=== PATIENT | female | born 1950 | race Caucasian/White ===

== ENCOUNTER 2016-10-12 12:08 | Emergency (ER) | payer MEDICARE | END 2016-10-12 13:15 | disposition home or self-care (01) | DX: I49.3 Ventricular premature depolarization (principal); Z85.3 Personal history of malignant neoplasm of breast; Z79.2 Long term (current) use of antibiotics; Z79.82 Long term (current) use of aspirin; Z79.899 Other long term (current) drug therapy; K21.9 Gastro-esophageal reflux disease without esophagitis; R03.0 Elevated blood-pressure reading, without diagnosis of hypertension ==

== ENCOUNTER 2017-01-05 07:17 | Outpatient (CLI) | payer MEDICARE | END 2017-01-05 07:18 | disposition home or self-care (01) | DX: E78.5 Hyperlipidemia, unspecified (principal) ==

== ENCOUNTER 2017-06-11 08:22 | Day surgery (SDC) | payer MEDICARE ==
[2017-06-11] MEDS ORDERED: MIDAZOLAM 2 MG/2 ML VIAL IVP ONE (08:23)
[2017-06-11] MEDS ORDERED: ONDANSETRON 4 MG/2 ML VIAL IVP ONE (08:23)
[2017-06-11] MEDS ORDERED: fentaNYL 100 MCG/2 ML VIAL IVP ONE (08:23)
[2017-06-11] MEDS ORDERED: LACTATED RINGERS 1,000 ML IV ONE ×2 (09:00→12:10)
--- NOTE | 2017-06-11 11:22 | HISTORY & PHYSICAL EXAMINATION ---
HPI - History of Present Illness HPI Comment/Other: This is to serve as an updated from an H and P performed 05/08/2017 Patient is here for colonoscopy for history of polyps Current Meds: ACIDOPHILUS PROBIOTIC CAPS (LACTOBACILLUS CAPS) Take one tablet by mouth daily B-12 5000 MCG ORAL CAPS (CYANOCOBALAMIN) Take one capsule by mouth daily PROTONIX 40 MG ORAL TBEC (PANTOPRAZOLE SODIUM) Take one tablet by mouth daily Past Medical History: Reviewed history from 01/08/2016 and no changes required: Breast CA Stage 1- 2009. Estrogen positive. HTN Hyperlipidemia High Cholesterol Gall stones Past Surgical History: Reviewed history from 01/08/2016 and no changes required: Right partial mastectomy on right breast CA. bILATERAL Breast reduction after above. 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 . Moved here from [place] recently. Retired to [place] Moved to [place] and bought a fixer upper and enjoys that hobby remodeling. Risk Factors: Smoked Tobacco Use: Never smoker Smokeless Tobacco Use: Never Passive smoke exposure: no Drug use: no HIV high-risk behavior: no Caffeine use: 1 drinks per day Alcohol use: yes Type: wine Exercise: yes Times per week: 7 Type of Exercise: walking, biking, kyaking Seatbelt use: 100 % Sun Exposure: frequently Family History Risk Factors: Family History of [place] in females < 65 years old: no Family History of [place] in males < 55 years old: yes Previous Tobacco Use: Signed On - 01/08/2017 Smoked Tobacco Use: Never smoker Smokeless Tobacco Use: Never Passive smoke exposure: no Drug use: no HIV high-risk behavior: no Caffeine use: 1 drinks per day Problems were reviewed with the patient during this visit. Medications were reviewed with the patient during this visit. Allergies were reviewed with the patient during this visit. Allergies: LEVAQUIN (Critical) * Q-LEA INHALER (Severe) Physical Exam General: well developed, well nourished, in no acute distress Lungs: clear bilaterally to A & P Heart: regular rate and rhythm, S1, S2 without murmurs, rubs, gallops, or clicks Abdomen: bowel sounds positive; abdomen soft and non-tender without masses, organomegaly, or hernias noted Pulses: pulses normal in all 4 extremities Extremities: no clubbing, cyanosis, edema, or deformity noted with normal full range of motion of all joints Cervical Nodes: no significant adenopathy Psych: alert and cooperative; normal mood and affect; normal attention span and concentration Problem # 1: polyps Will proceed with colonoscopy PMH/PSH - Past Medical History GI: positive: GERD, Hemorrhoids, Diverticulitis PHYSICIAN AIDE: positive: Breast cancer MRSA Hx?: No - Past Surgical History General: positive: Appendectomy /PHYSICIAN AIDE: positive: Breast reduction, Other HEENT: positive: Tonsil/Adenoidectomy Social & Family Hx - Social History Does the pt smoke?: No Smoking Status: Never smoker Does the pt drink ETOH?: Yes ETOH Use: Wine Does the pt have substance abuse?: No Meds/Allgy - Home Medications Home Medications: Ambulatory Orders Medication Instructions Recorded Confirmed Aspirin [Aspir-Low] 81 mg PO DAILY 07/19/16 06/10/17 Bacillus Coagulans [Probiotic] 1 cap PO DAILY 07/19/16 06/10/17 Benazepril/Hydrochlorothiazide 1 tab PO DAILY 07/20/16 06/10/17 [Benazepril-Hctz 20-25 mg Tab] Cyanocobalamin (Vitamin B-12) 5,000 mcg PO DAILY 07/20/16 06/10/17 [B-12 Dual Spectrum] Mupirocin 1 gm DONALD BID #2 tub 10/12/16 06/10/17 raNITIdine [Zantac] 1 tab ORAL DAILY 06/10/17 06/10/17 - Allergies Allergies/Adverse Reactions: Allergies Allergy/AdvReac Type Severity Reaction Status Date / Time levofloxacin [From Levaquin] Allergy Unknown Verified 10/12/16 12:15 Exam - Vital Signs Vital Signs: Vital Signs x48h Temp Pulse Resp BP Pulse Ox 06/11/17 08:35 36.5 C 69 16 156/75 H 97
[2017-06-11 12:32] VITALS: BP 104/42
== END 2017-06-11 08:23 | disposition home or self-care (01) ==
LOC: SDS 08:22
PROVIDERS: ATTEND Surgery
PROC: 0DJD8ZZ Inspection of Lower Intestinal Tract, Via Natural or Artificial Opening Endoscopic (ICD-10-PCS; principal; 2017-06-11 09:45)
DX: Z12.11 Encounter for screening for malignant neoplasm of colon (principal); Z86.010 Personal history of colon polyps; K64.4 Residual hemorrhoidal skin tags; K64.8 Other hemorrhoids; K57.90 Diverticulosis of intestine, part unspecified, without perforation or abscess without bleeding; I10 Essential (primary) hypertension; E78.5 Hyperlipidemia, unspecified; Z85.3 Personal history of malignant neoplasm of breast
CPT/HCPCS: 45378; J7120

== ENCOUNTER 2017-06-30 08:43 | Outpatient (CLI) | payer MEDICARE ==
--- NOTE | 2017-06-30 17:13 | Ultrasound Report ---
SCREENING AORTA ULTRASOUND: 06/30/2017 COMPARISON: None. INDICATION: Family history of AAA. TECHNIQUE: Sonographic evaluation of the abdominal aorta and proximal iliac arteries was performed. FINDINGS: Proximal aorta 2.6 cm. Mid abdominal aorta 2.0 x 1.8 cm. Distal abdominal aorta 1.3 x 1.3 cm. Right iliac artery 1.9 cm. Left iliac artery 1.1 cm. No appreciable plaque or atherosclerosis. IMPRESSION: NEGATIVE SCREENING ULTRASOUND OF THE ABDOMINAL AORTA. JOB #: [id number] EXT JOB #:[id number]
== END 2017-06-30 08:44 | disposition home or self-care (01) ==
LOC: DI 08:43
PROVIDERS: ATTEND Physician Assistant Medical
DX: Z13.6 Encounter for screening for cardiovascular disorders (principal); Z82.49 Family history of ischemic heart disease and other diseases of the circulatory system
CPT/HCPCS: 76706

== ENCOUNTER 2017-07-22 11:12 | Outpatient (CLI) | payer MEDICARE ==
--- NOTE | 2017-07-22 14:34 | Ultrasound Report ---
RIGHT BREAST ULTRASOUND: 07/22/2017 CLINICAL INDICATION: Palpable abnormality on clinical exam 8 o'clock periareolar right breast. TECHNIQUE: Real-time scanning was performed with traffic workforce representative static images obtained. FINDINGS: Ultrasound of the 8 o'clock periareolar right breast was performed. Unremarkable parenchymal lobules are seen. No discrete solid or cystic mass is appreciated. No sonographically suspicious findings are seen. IMPRESSION: NEGATIVE EXAMINATION. RECOMMENDATION: ROUTINE ANNUAL SCREENING UNLESS OTHERWISE CLINICALLY INDICATED. BIRADS CATEGORY 1-NEGATIVE. MTDD
--- NOTE | 2017-07-22 14:41 | Mammography Report ---
DIGITAL DIAGNOSTIC BILATERAL MAMMOGRAM: 07/22/2017 CLINICAL INDICATION: Palpable abnormality on clinical exam right periareolar breast, history of right breast cancer, history of bilateral reduction mammoplasty. COMPARISON: 01/29/2016. TECHNIQUE: Bilateral CC and MLO views, right true lateral view. FINDINGS: The breasts again demonstrate scattered fibroglandular parenchyma bilaterally. Postoperati ve changes are stable. Coarse and punctate, typically benign calcifications are present. No suspiciou s masses, clustered microcalcifications, or regions of architectural distortion are identified. Speci fically, no mammographic abnormality is appreciated in the right periareolar breast, in the region in dicated on the requisition. Please also refer to right breast ultrasound of the same day. IMPRESSION: BENIGN FINDINGS. RECOMMENDATION: ROUTINE ANNUAL SCREENING UNLESS OTHERWISE CLINICALLY INDICATED. BIRADS CATEGORY 2-BENIGN FINDINGS. STANDARD QUALIFYING STATEMENTS 1. This examination was reviewed with the aid of Computer-Aided Detection (CAD). 2. A negative or benign imaging report should not delay biopsy if clinically suspicious findings are present. Consider surgical consultation if warranted. More than 5% of cancers are not identified by i maging. 3. Dense breasts may obscure an underlying neoplasm. JOB #: [id number] EXT JOB #:[id number]
== END 2017-07-22 11:13 | disposition home or self-care (01) ==
LOC: DI 11:12
PROVIDERS: ATTEND Physician Assistant Medical
DX: N63.41 Unspecified lump in right breast, subareolar (principal); Z85.3 Personal history of malignant neoplasm of breast
CPT/HCPCS: 76642; G0204; 77066

== ENCOUNTER 2017-12-18 07:11 | Outpatient (CLI) | payer MEDICARE ==
[2017-12-18 10:54] LABS: BASOPHILS # (AUTO) 0.1 10^3/uL (0.0-0.1); BASOPHILS % (AUTO) 1.7 %; EOSINOPHILS # (AUTO) 0.3 10^3/uL (0.0-0.7); EOSINOPHILS % (AUTO) 5.3 %; HGB - HEMOGLOBIN 14.8 g/dL (12.0-16.0); LYMPHOCYTES % (AUTO) 36.4 %; MEAN CORPUSCULAR HEMOGLOBIN 30.4 pg (27.0-31.0); MEAN CORPUSCULAR HGB CONC 34.4 g/dL (32.0-36.0); MEAN CORPUSCULAR VOLUME 88.2 fL (81.0-99.0); MONOCYTES # (AUTO) 0.5 10^3/uL (0.0-1.0); MONOCYTES % (AUTO) 9.2 %; NEUTROPHILS # (AUTO) 2.6 10^3/uL (1.5-6.6); NEUTROPHILS % (AUTO) 47.4 %; PLT - PLATELET COUNT 231 10^3/uL (130-450); RED BLOOD COUNT 4.87 10^6/uL (4.20-5.40); RED CELL DISTRIBUTION WIDTH 13.2 % (12.0-15.0); WHITE BLOOD COUNT 5.5 x10^3/uL (4.8-10.8)
[2017-12-18 11:12] LABS: ALBUMIN 4.7 g/dL (3.2-5.5); ALBUMIN/GLOBULIN RATIO 1.5 (1.0-2.2); ALKALINE PHOSPHATASE 70 IU/L (42-121); ALT ALANINE AMINOTRANSFERASE 101 IU/L (10-60); AST ASPARTATE AMINOTRANSFERASE 70 IU/L (10-42); BILIRUBIN,TOTAL 0.7 mg/dL (0.2-1.0); BUN - BLOOD UREA NITROGEN 12 mg/dL (6-20); CALCIUM 9.7 mg/dL (8.5-10.3); CARBON DIOXIDE - CO2 24 mmol/L (21-32); CHLORIDE 103 mmol/L (101-111); CHOL/HDL RATIO 4.5 (<4.4); CHOLESTEROL 223 mg/dL; CREATININE 0.4 mg/dL (0.4-1.0); GFR - MDRD 159 (>89); GLUCOSE 87 mg/dL (70-100); HDL CHOLESTEROL 50 mg/dL; LDL CHOLESTEROL,CALCULATED 142 mg/dL; LDL/HDL RATIO 2.8 (<4.4); SODIUM 135 mmol/L (135-145); TOTAL PROTEIN 7.8 g/dL (6.7-8.2); VLDL CHOLESTEROL 31 mg/dL
== END 2017-12-18 07:12 | disposition home or self-care (01) ==
LOC: LAB.F 07:11
PROVIDERS: ATTEND Physician Assistant Medical
DX: I10 Essential (primary) hypertension (principal); E78.5 Hyperlipidemia, unspecified; E55.9 Vitamin D deficiency, unspecified
CPT/HCPCS: 36415; 80053; 80061; 82306; 83721; 85025

== ENCOUNTER 2018-02-11 09:56 | Outpatient (CLI) | payer MEDICARE ==
[2018-02-11 18:37] LABS: THYROID STIMULATING HORMONE 1.04 uIU/mL (0.34-5.60)
[2018-02-13 14:27] LABS: ANA SCREEN NEGATIVE (NEGATIVE)
== END 2018-02-11 09:57 | disposition home or self-care (01) ==
LOC: LAB.F 09:56
PROVIDERS: ATTEND Physician Assistant Medical
DX: G60.9 Hereditary and idiopathic neuropathy, unspecified (principal); H53.8 Other visual disturbances
CPT/HCPCS: 36415; 82607; 84443; 85651; 86038

== ENCOUNTER 2018-09-21 10:09 | Outpatient (CLI) | payer MEDICARE ==
--- NOTE | 2018-09-22 11:54 | Mammography Report ---
Reason: SCREENING MAMMOGRAM Procedure Date: 09/21/2018 Accession Number: [id number] / [id number] Procedure: VASILIY - Screening Mammo w/Sachin CPT Code: FULL RESULT: EXAM: Screening Mammo w/Sachin DATE: 09/21/2018 11:27 AM CLINICAL HISTORY: History of prior right lumpectomy and radiation therapy TECHNIQUE: Bilateral CC and MLO views were obtained. COMPARISON: 07/22/2017 and 01/29/2016 FINDINGS: There are scattered fibroglandular densities. There is been no significant interval change. Posttreatment changes and multiple benign appearing calcifications right breast as before. No new suspicious masses, clustered microcalcifications, or regions of architectural distortion are identified. IMPRESSION: Benign findings RECOMMENDATION: Routine annual screening unless otherwise clinically indicated. BIRADS CATEGORY 2: Benign findings STANDARD QUALIFYING STATEMENTS: 1. This examination was not reviewed with the aid of Computer-Aided Detection (CAD). 2. A negative or benign imaging report should not delay biopsy if clinically suspicious findings are present. Consider surgical consultation if warrented. More than 5% of cancers are not identified by imaging. 3. Dense breasts may obscure an underlying neoplasm. 4. This examination was reviewed with the aid of 3D breast imaging (tomosynthesis).
== END 2018-09-21 10:10 | disposition home or self-care (01) ==
LOC: DI 10:09
PROVIDERS: ATTEND Physician Assistant Medical
DX: Z12.31 Encounter for screening mammogram for malignant neoplasm of breast (principal)
CPT/HCPCS: 77063; 77067

== ENCOUNTER 2018-10-02 16:07 | Emergency (ER) | payer MEDICARE ==
[2018-10-02 16:53] LABS: BASOPHILS # (AUTO) 0.1 10^3/uL (0.0-0.1); BASOPHILS % (AUTO) 1.4 %; EOSINOPHILS # (AUTO) 0.2 10^3/uL (0.0-0.7); EOSINOPHILS % (AUTO) 3.9 %; HGB - HEMOGLOBIN 13.8 g/dL (12.0-16.0); LYMPHOCYTES # (AUTO) 2.2 10^3/uL (1.5-3.5); LYMPHOCYTES % (AUTO) 36.3 %; MEAN CORPUSCULAR HEMOGLOBIN 30.6 pg (27.0-31.0); MEAN CORPUSCULAR HGB CONC 34.2 g/dL (32.0-36.0); MEAN CORPUSCULAR VOLUME 89.4 fL (81.0-99.0); MEAN PLATELET VOLUME 8.6 fL (7.9-10.8); MONOCYTES # (AUTO) 0.6 10^3/uL (0.0-1.0); MONOCYTES % (AUTO) 9.9 %; NEUTROPHILS % (AUTO) 48.5 %; PLT - PLATELET COUNT 196 10^3/uL (130-450); RED BLOOD COUNT 4.53 10^6/uL (4.20-5.40); RED CELL DISTRIBUTION WIDTH 13.6 % (12.0-15.0); WHITE BLOOD COUNT 6.1 x10^3/uL (4.8-10.8)
--- NOTE | 2018-10-02 16:55 | ED Physician Documentation ---
PD HPI CHEST PAIN - Stated complaint Stated Complaint: FAST HEART/FLUTTERY - Chief complaint Chief Complaint: Cardiac - History obtained from History obtained from: Patient - History of Present Illness Timing - onset: Today (She has had frequent palpitations today. She describes it as skipped heartbeats every few beats. It is better now. Its associated with mild shortness of breath but no dizziness. She was recently taken off of hydrochlorothiazide and benazepril and substituted for amlodipine. Otherwise no medication changes. No stimulant use. She had a similar visit in October 2016 for PVCs.) Review of Systems Ten Systems: 10 systems reviewed and negative Constitutional: denies: Fever, Chills Cardiac: reports: Palpitations. denies: Chest pain / pressure Respiratory: reports: Dyspnea. denies: Cough GI: denies: Abdominal Pain PD PAST MEDICAL HISTORY - Past Medical History Past Medical History: Yes Cardiovascular: Hypertension, High cholesterol GI: GERD, Hemorrhoids, Diverticulitis CASH MANAGER: Breast cancer - Past Surgical History Past Surgical History: Yes General: Appendectomy /CASH MANAGER: Breast reduction - Present Medications Home Medications: Ambulatory Orders Medication Instructions Recorded Confirmed Aspirin [Aspir-Low] 81 mg PO DAILY 07/19/16 06/10/17 Cyanocobalamin (Vitamin B-12) 5,000 mcg PO DAILY 07/20/16 06/10/17 [B-12 Dual Spectrum] raNITIdine [Zantac] 1 tab ORAL DAILY 06/10/17 06/10/17 Magnesium Oxide [Magnesium] 250 mg PO DAILY 10/02/18 10/02/18 Rosuvastatin Calcium [Crestor] 5 mg PO DAILY 10/02/18 10/02/18 amLODIPine [Norvasc] 5 mg PO DAILY 10/02/18 10/02/18 - Allergies Allergies/Adverse Reactions: Allergies Allergy/AdvReac Type Severity Reaction Status Date / Time levofloxacin [From Levaquin] Allergy Unknown Verified 10/02/18 16:19 - Social History Does the pt smoke?: No Smoking Status: Never smoker Does the pt drink ETOH?: Yes Does the pt have substance abuse?: No - Immunizations Immunizations are current?: Yes PD ED PE NORMAL - Vitals Vital signs reviewed: Yes - General General: Alert and oriented X 3, No acute distress - HEENT HEENT: Pharynx benign - Neck Neck: No JVD - Cardiac Cardiac: RRR, No murmur - Respiratory Respiratory: No respiratory distress, Clear bilaterally - Abdomen Abdomen: Non tender - Extremities Extremities: No edema, No calf tenderness / cord - Neuro Neuro: Alert and oriented X 3, Normal speech Results - Vitals Vitals: Vital Signs - 24 hr 10/02/18 10/02/18 10/02/18 16:11 16:24 17:05 Temperature 36.9 C Heart Rate 61 60 59 L Respiratory 18 18 16 Rate Blood Pressure 162/85 H 170/90 H O2 Saturation 97 99 100 Oxygen O2 Source Room air - EKG (time done) 1613 Rate: Rate (enter#) (59) Rhythm: NSR [place]: Normal Intervals: Normal [place] QRS: Normal Ischemia: Normal ST segments Computer interpretation: Agree with computer - Labs Labs: Laboratory Tests 10/02/18 10/02/18 10/02/18 16:45 16:45 16:45 WBC 6.1 RBC 4.53 Hgb 13.8 Hct 40.5 MCV 89.4 MCH 30.6 MCHC 34.2 RDW 13.6 Plt Count 196 MPV 8.6 Neut # (Auto) 3.0 Lymph # (Auto) 2.2 [place] # (Auto) 0.6 Eos # (Auto) 0.2 Baso # (Auto) 0.1 Absolute Nucleated RBC 0.00 Nucleated RBC % 0.0 Sodium 141 Potassium 3.7 Chloride 108 Carbon Dioxide 24 Anion Gap 9.0 BUN 13 Creatinine 0.5 Estimated GFR (MDRD) 123 Glucose 97 Calcium 9.9 Magnesium 2.1 Total Bilirubin 0.3 AST 33 ALT 40 Alkaline Phosphatase 64 Troponin I < 0.04 Total Protein 7.6 Albumin 4.4 Globulin 3.2 Albumin/Globulin Ratio 1.4 Lipase 38 - Rads (name of study) 2v chest Radiology: EMP read contemporaneously (normal) PD MEDICAL DECISION MAKING - ED course ED course: 68-year-old woman with palpitations today. Her description sounds most like PVCs or PACs which she has a history of. She had no ectopy on the monitor and was asymptomatic while in the emergency department. Departure - Departure Disposition: Home, Self Care Clinical Impression: Palpitations Condition: Good Record reviewed to determine appropriate education?: Yes Instructions: Heart Palpitations Comments: If you have persistent symptoms talk with your doctor about a Holter monitor. Return for new or worsening symptoms. Recheck your blood pressure with your physician in 2 weeks as scheduled.
[2018-10-02 17:17] LABS: ALBUMIN 4.4 g/dL (3.2-5.5); ALBUMIN/GLOBULIN RATIO 1.4 (1.0-2.2); BILIRUBIN,TOTAL 0.3 mg/dL (0.2-1.0); CALCIUM 9.9 mg/dL (8.5-10.3); CREATININE 0.5 mg/dL (0.4-1.0); MAGNESIUM 2.1 mg/dL (1.7-2.8); TOTAL PROTEIN 7.6 g/dL (6.7-8.2)
--- NOTE | 2018-10-02 17:19 | XRAY Report ---
Reason: palpitations, soa Procedure Date: 10/02/2018 Accession Number: [id number] / [id number] Procedure: XR - Chest 2 View X-Ray CPT Code: 56415 FULL RESULT: EXAM: CHEST RADIOGRAPHY EXAM DATE: 10/02/2018 05:01 PM. CLINICAL HISTORY: Rapid heart rate. Palpitations. Shortness of air. COMPARISON: None. TECHNIQUE: 2 views. FINDINGS: Lungs/Pleura: No focal opacities evident. No pleural effusion. No pneumothorax. Normal volumes. Mediastinum: Heart size is normal. Aorta is mildly tortuous. Other: Degenerative changes of the thoracic spine. Surgical clips overlie the right hemithorax. IMPRESSION: 1. No acute disease in the chest. RADIA
[2018-10-02 17:38] VITALS: BP 147/81
== END 2018-10-02 17:39 | disposition home or self-care (01) ==
LOC: ED 16:07
DX: R00.2 Palpitations (principal); I10 Essential (primary) hypertension; E78.00 Pure hypercholesterolemia, unspecified; C50.919 Malignant neoplasm of unspecified site of unspecified female breast; Z79.82 Long term (current) use of aspirin
CPT/HCPCS: 36415; 71046; 80053; 83690; 83735; 84484; 85025; 93005; 99283

== ENCOUNTER 2019-02-23 11:31 | Outpatient (CLI) | payer MEDICARE ==
[2019-02-23 18:07] LABS: CALCIUM 9.8 mg/dL (8.5-10.3); CREATININE 0.6 mg/dL (0.4-1.0)
== END 2019-02-23 11:32 | disposition home or self-care (01) ==
LOC: LAB.F 11:31
PROVIDERS: ATTEND Internal Medicine Cardiovascular Disease
DX: Z79.899 Other long term (current) drug therapy (principal)
CPT/HCPCS: 36415; 80048

== ENCOUNTER 2019-09-30 09:14 | Outpatient (CLI) | payer MEDICARE ==
[2019-09-30 18:28] LABS: BASOPHILS # (AUTO) 0.1 10^3/uL (0.0-0.1); BASOPHILS % (AUTO) 1.7 %; EOSINOPHILS # (AUTO) 0.3 10^3/uL (0.0-0.7); EOSINOPHILS % (AUTO) 6.2 %; HGB - HEMOGLOBIN 14.5 g/dL (12.0-16.0); LYMPHOCYTES % (AUTO) 36.6 %; MEAN CORPUSCULAR HEMOGLOBIN 29.1 pg (27.0-31.0); MEAN CORPUSCULAR HGB CONC 31.7 g/dL (32.0-36.0); MEAN CORPUSCULAR VOLUME 91.8 fL (81.0-99.0); MEAN PLATELET VOLUME 11.2 fL (7.9-10.8); MONOCYTES # (AUTO) 0.5 10^3/uL (0.0-1.0); MONOCYTES % (AUTO) 8.6 %; NEUTROPHILS # (AUTO) 2.5 10^3/uL (1.5-6.6); NEUTROPHILS % (AUTO) 46.7 %; PLT - PLATELET COUNT 233 10^3/uL (130-450); RED BLOOD COUNT 4.98 10^6/uL (4.20-5.40); RED CELL DISTRIBUTION WIDTH 13.1 % (12.0-15.0); WHITE BLOOD COUNT 5.3 x10^3/uL (4.8-10.8)
[2019-09-30 18:43] LABS: ALBUMIN 4.8 g/dL (3.2-5.5); ALBUMIN/GLOBULIN RATIO 1.6 (1.0-2.2); ALKALINE PHOSPHATASE 81 IU/L (42-121); ALT ALANINE AMINOTRANSFERASE 27 IU/L (10-60); AST ASPARTATE AMINOTRANSFERASE 26 IU/L (10-42); BILIRUBIN,TOTAL 1.1 mg/dL (0.2-1.0); BUN - BLOOD UREA NITROGEN 13 mg/dL (6-20); CALCIUM 9.7 mg/dL (8.5-10.3); CARBON DIOXIDE - CO2 25 mmol/L (21-32); CHLORIDE 104 mmol/L (101-111); CHOL/HDL RATIO 2.8 (<4.4); CHOLESTEROL 134 mg/dL; CREATININE 0.5 mg/dL (0.4-1.0); GFR - MDRD 122 (>89); GLUCOSE 92 mg/dL (70-100); HDL CHOLESTEROL 48 mg/dL; LDL CHOLESTEROL,CALCULATED 65 mg/dL; LDL/HDL RATIO 1.4 (<4.4); SODIUM 138 mmol/L (135-145); TOTAL PROTEIN 7.8 g/dL (6.7-8.2); VLDL CHOLESTEROL 21 mg/dL
== END 2019-09-30 09:15 | disposition home or self-care (01) ==
LOC: LAB.S 09:14
PROVIDERS: ATTEND Physician Assistant Medical
DX: Z51.81 Encounter for therapeutic drug level monitoring (principal); Z12.11 Encounter for screening for malignant neoplasm of colon; E78.5 Hyperlipidemia, unspecified; Z79.899 Other long term (current) drug therapy; I10 Essential (primary) hypertension
CPT/HCPCS: 36415; 80053; 80061; 83721; 85025

== ENCOUNTER 2019-10-12 08:00 | Outpatient (CLI) | payer MEDICARE | END 2019-10-12 08:01 | disposition home or self-care (01) | LOC: LAB.R 08:00 | PROVIDERS: ATTEND Physician Assistant Medical | DX: Z12.11 Encounter for screening for malignant neoplasm of colon (principal) | CPT/HCPCS: 82274 ==

== ENCOUNTER 2019-10-21 12:14 | Outpatient (CLI) | payer MEDICARE ==
--- NOTE | 2019-10-25 09:39 | Mammography Report ---
Reason: ROUTINE MAMMO Procedure Date: 10/21/2019 Accession Number: [id number] / [id number] Procedure: VASILIY - Screening Mammo w/Sachin CPT Code: Final Report FULL RESULT: EXAM: Screening Mammo w/Sachin DATE: 10/21/2019 1:05 PM CLINICAL HISTORY: Screening encounter. Personal history of breast cancer status post right breast lumpectomy in 2008. Bilateral breast reduction in 2008. Left breast augmentation 2009. TECHNIQUE: (B) - Bilateral CC and MLO views were obtained. Right laterally exaggerated cc view is obtained. COMPARISON: 09/21/2018 through 01/29/2016. PARENCHYMAL PATTERN: (A) - The breast(s) demonstrate(s) scattered fibroglandular densities. FINDINGS: Postsurgical changes in the right breast are stable. There are no suspicious masses, calcifications, or areas of distortion. IMPRESSION: Benign findings. BI-RADS category 2. RECOMMENDATION: (ANNUAL) - Recommend routine annual screening mammography. BI-RADS CATEGORY: (2) - Benign Findings. STANDARD QUALIFYING STATEMENTS: 1. This examination was not reviewed with the aid of Computer-Aided Detection (CAD). 2. A negative or benign imaging report should not preclude biopsy if clinically suspicious findings are present. 3. Dense breasts may obscure an underlying neoplasm. 4. This examination was reviewed with the aid of 3D breast imaging (tomosynthesis).
== END 2019-10-21 12:15 | disposition home or self-care (01) ==
LOC: DI 12:14
DX: Z12.31 Encounter for screening mammogram for malignant neoplasm of breast (principal); Z85.3 Personal history of malignant neoplasm of breast
CPT/HCPCS: 77063; 77067

== ENCOUNTER 2019-10-21 12:16 | Outpatient (CLI) | payer MEDICARE ==
--- NOTE | 2019-10-27 08:18 | DEXA Report ---
Reason: POSTMENOPAUSAL Procedure Date: 10/21/2019 Accession Number: [id number] / [id number] Procedure: DEX - Dexa Spine and/or Hip CPT Code: Final Report FULL RESULT: EXAM: Dexa Spine and/or Hip DATE: 10/21/2019 1:08 PM CLINICAL HISTORY: POSTMENOPAUSAL TECHNIQUE: Dual energy x-ray absorptiometry (DXA) was performed on a [employer] System. Regions measured are the AP Spine, femoral neck, and if needed forearm. COMPARISON: 02/28/2016. In accordance with the International Society for Clinical Densitometry (ISCD) guidelines, data from previous exams may be reanalyzed using current recommendations and techniques. This is done to allow a more accurate basis for comparison with the current study. FINDINGS: The data for the lumbar spine is as follows: BMD (g/cm/cm) T-SCORE Z-SCORE REGION L1 1.092 -0.3 1.0 L2 1.112 -0.7 0.6 L3 1.165 -0.3 1.0 L4 1.261 0.5 1.8 TOTAL -0.4 1.0 NOTE: All evaluable vertebrae are used for classification The data for the hip is as follows: BMD (g/cm/cm) T-SCORE Z-SCORE REGION Neck 0.868 -1.2 0.2 TOTAL 0.941 -0.5 0.7 NOTE: The femoral neck or total proximal femur, whichever is lowest, is used for classification. DXA RESULTS SUMMARY: Spine SCAN DATE AGE BMD CHANGE VS CHANGE VS PREVIOUS PREVIOUS % 10/21[birth year]2019 [age] 1[age]124 0.045* 4.2* 02/28/2016 [age] 1[age]079 * Denotes significant change at the 95% confidence level. Denotes dissimilar scan types or analysis methods. DXA RESULTS SUMMARY: Hip SCAN DATE AGE BMD CHANGE VS CHANGE VS PREVIOUS PREVIOUS % 10/21/2019 69.5 0.941 -0.051* -5.1* 02[birth year]28/2016 65.8 0.992 * Denotes significant change at the 95% confidence level. Denotes dissimilar scan types or analysis methods. IMPRESSION: THE WHO CLASSIFICATION BASED ON THE INTERNATIONAL REFERENCE STANDARD IS OSTEOPENIA. THE FRACTURE RISK IS INCREASED. Interval decrease in bone density is statistically significant. RECOMMENDATION: Patients with diagnosis of osteoporosis or osteopenia should have regular bone mineral density assessment. For those eligible for Medicare, routine testing is allowed once every 2 years. Testing frequency can be increased for patients who have rapidly progressing disease or for those who are receiving medical therapy to restore bone mass. COMMENT: World Health Organization (WHO) definitions for osteoporosis and osteopenia: NORMAL BMD: T-score at -1.0 or higher, fracture risk is low OSTEOPENIA BMD: T-score between -1.0 and -2.5, fracture risk is increased. OSTEOPOROSIS BMD: T-score at -2.5 or lower, fracture risk is high. National Osteoporosis Foundation recommends: 1. Obtain adequate dietary calcium (at least 1200 mg per day) and vitamin D (400-800 international units per day). 2. Participate, as appropriate, in regular weightbearing and muscle-strengthening exercise. 3. Avoid tobacco use and reduce alcohol and caffeine intake. 4. For more detailed information see the website at www.NOF.org.
== END 2019-10-21 12:17 | disposition home or self-care (01) ==
LOC: DI 12:16
PROVIDERS: ATTEND Physician Assistant Medical
DX: M85.88 Other specified disorders of bone density and structure, other site (principal)
CPT/HCPCS: 77080

== ENCOUNTER 2020-02-09 16:03 | Outpatient (CLI) | payer MEDICARE ==
--- NOTE | 2020-02-10 08:50 | XRAY Report ---
Reason: LOW BACK PAIN Procedure Date: 02/09/2020 Accession Number: [id number] / [id number] Procedure: XR - Lumbar Spine 2 View CPT Code: Final Report FULL RESULT: PROCEDURE: Lumbar Spine 2 View INDICATIONS: LOW BACK PAIN TECHNIQUE: 3 views of the lumbar spine were acquired. COMPARISON: None. FINDINGS: Bones: 5 [id number] vertebrae are present. There is mild diffuse rightward curvature of the lumbar spine. Multilevel disc space narrowing and endplate osteophyte formation are present, worst at L4-L5 and L5-S1, indicating degenerative disc disease. Facet hypertrophy throughout the lumbar spine, worst in the mid and lower lumbar spine is present, indicating facet osteoarthritis. No vertebral body compression fractures. No suspicious bony lesions. Soft tissues: Overlying bowel gas pattern is normal. No suspicious soft tissue calcifications. IMPRESSION: 1. Multilevel degenerative disc and facet disease. This could be further assessed with lumbar spine MRI, if clinically indicated. Reviewed by: Manny Baldwin MD on 02/10/2020 8:49 AM PDT Approved by: Manny Baldwin MD on 02/10/2020 8:49 AM PDT Station ID: [id number]
--- NOTE | 2020-02-10 08:51 | XRAY Report ---
Reason: RIGHT HIP PAIN Procedure Date: 02/09/2020 Accession Number: [id number] / [id number] Procedure: XR - Pelvis 1 View CPT Code: Final Report FULL RESULT: PROCEDURE: Pelvis 1 View INDICATIONS: RIGHT HIP PAIN TECHNIQUE: 1 view(s) of the pelvis acquired. COMPARISON: None. FINDINGS: Bones: No fractures or dislocations. No suspicious bony lesions. Moderate joint space narrowing and periarticular osteophyte formation at the bilateral hip joints. Soft tissues: Visualized bowel gas pattern is normal. No suspicious soft tissue calcifications. IMPRESSION: Bilateral hip osteoarthritis. No acute fracture. No osseous lesion. If symptoms and/or clinical suspicion for pathology continue, further assessment with repeat plain films, or advanced imaging (e.g., CT, MRI, or bone scan) is recommended for further assessment. Reviewed by: Manny Baldwin MD on 02/10/2020 8:50 AM PDT Approved by: Manny Baldwin MD on 02/10/2020 8:50 AM PDT Station ID: [id number]
== END 2020-02-09 16:04 | disposition home or self-care (01) ==
LOC: DI 16:03
PROVIDERS: ATTEND Registered Nurse
DX: M47.816 Spondylosis without myelopathy or radiculopathy, lumbar region (principal); M47.817 Spondylosis without myelopathy or radiculopathy, lumbosacral region; M51.36 Other intervertebral disc degeneration, lumbar region; M51.37 Other intervertebral disc degeneration, lumbosacral region; M16.0 Bilateral primary osteoarthritis of hip
CPT/HCPCS: 72100; 72170

== ENCOUNTER 2020-03-16 11:24 | Outpatient (CLI) | payer MEDICARE ==
--- NOTE | 2020-03-16 15:05 | CT Report ---
PROCEDURE: PELVIS WO INDICATIONS: RT HIP/BACK PAIN TECHNIQUE: Noncontrast 3 mm axial sections acquired through the bony pelvis, with coronal and sagittal reformatt ing. For radiation dose reduction, the following was used: automated exposure control, adjustment of mA and/or kV according to patient size. COMPARISON: Prior plain film imaging of the pelvis 02/09/2020 reviewed.. FINDINGS: Image quality: Excellent. Bones: There is bilateral hip joint osteoarthritis, slightly greater on the right than the left, wit h joint space narrowing and right greater than left osteophytic spurring. Low lumbosacral spine degen erative disc disease is moderately severe, with partial visualization of both spinal and foraminal st enosis at the low lumbosacral spine included on this imaging, from inferior L4 into S1. There is no s ign of insufficiency fracture or prior undiagnosed fracture at this time. Soft tissues: No mass is found, no hematoma identified. No suspicion for prior soft tissue trauma. IMPRESSION: Asymmetric right greater than left hip joint osteoarthritis, chronic in appearance, with no sign of o steoporotic fracture or prior undiagnosed trauma. Source of persistent pelvic pain is not identified other than hip joint degenerative change and possible referred pain from relatively extensive lumbosa cral spine degenerative changes. Reviewed by: Alfred Ross MD on 03/16/2020 3:03 PM PDT Approved by: Alfred Ross MD on 03/16/2020 3:03 PM PDT Station ID: [id number]
--- NOTE | 2020-03-16 16:06 | CT Report ---
PROCEDURE: LUMBAR SPINE WO INDICATIONS: RT HIP/BACK PAIN TECHNIQUE: Noncontrast 3 mm thick sections acquired from the T12 level to the sacrum. Sagittal and coronal refo rmats were constructed. For radiation dose reduction, the following was used: automated exposure co ntrol, adjustment of mA and/or kV according to patient size. COMPARISON: X-ray lumbar spine 02/09/2020. FINDINGS: Image quality: Excellent. Bones: There is there is trace retrolisthesis of L1 on L2, L2 on L3, L3 on L4, grade 1 retrolisthesi s of L5 on S1. There are no visualized osseous fractures or dislocations. Multilevel anterior osteoph ytes are present most prominent bridging osteophytes at L1-L2. No suspicious osseous lesions. Severe disc space narrowing with vacuum disc is noted L4-5 and L5-S1, most severe at L5-S1. Sclerotic reactive endplate changes are present. Mild to moderate disc space narrowing is noted throughout the remainder of the lumbar spine. Mild disc bulges are present at L1-L2, L2-3, L3-4, L4-5 including posterior central protrusion, mild disc bulge at L5-S1. Mild spinal stenosis is present at L2-3, moderate L3-4, moderate to severe L4-5. Mild left and moderate to severe right foraminal narrowing L2-3, moderate to severe left and moderat e right L3-4, severe bilateral, left greater than right with slight appearance of nerve root flatteni ng on the left at L4-5, severe bilateral L5-S1. Multilevel facet and ligamentum flavum hypertrophy ar e present. Soft tissues: No retroperitoneal masses or hematomas. Visualized aorta is normal in caliber. IMPRESSION: 1. Multilevel disc bulges. 2. Multilevel spinal stenosis most notable at L4-5 secondary to disc bulge with contributing effect o f facet/ligamentum flavum arthropathy and retrolisthesis. 3. Multilevel foraminal narrowing most severe at L4-5 and L5-S1 secondary to facet arthropathy, with contributing affect of retrolisthesis. Reviewed by: Nimisha Adamson MD on 03/16/2020 4:05 PM PDT Approved by: Nimisha Adamson MD on 03/16/2020 4:05 PM PDT Station ID: [id number]
== END 2020-03-16 11:25 | disposition home or self-care (01) ==
LOC: DI 11:24
PROVIDERS: ATTEND Registered Nurse
DX: M16.0 Bilateral primary osteoarthritis of hip (principal); M47.816 Spondylosis without myelopathy or radiculopathy, lumbar region; M47.817 Spondylosis without myelopathy or radiculopathy, lumbosacral region; M43.16 Spondylolisthesis, lumbar region; M43.17 Spondylolisthesis, lumbosacral region; M51.36 Other intervertebral disc degeneration, lumbar region; M51.37 Other intervertebral disc degeneration, lumbosacral region; M51.27 Other intervertebral disc displacement, lumbosacral region; M48.061 Spinal stenosis, lumbar region without neurogenic claudication; M48.07 Spinal stenosis, lumbosacral region
CPT/HCPCS: 72131; 72192

== ENCOUNTER 2020-07-11 12:05 | Emergency (ER) | payer MEDICARE ==
[2020-07-11 13:23] LABS: BASOPHILS # (AUTO) 0.1 10^3/uL (0.0-0.1); EOSINOPHILS # (AUTO) 0.3 10^3/uL (0.0-0.7); EOSINOPHILS % (AUTO) 4.9 %; HGB - HEMOGLOBIN 14.1 g/dL (12.0-16.0); LYMPHOCYTES # (AUTO) 1.8 10^3/uL (1.5-3.5); LYMPHOCYTES % (AUTO) 27.4 %; MEAN CORPUSCULAR HEMOGLOBIN 29.6 pg (27.0-31.0); MEAN CORPUSCULAR VOLUME 89.5 fL (81.0-99.0); MEAN PLATELET VOLUME 10.4 fL (7.9-10.8); MONOCYTES # (AUTO) 0.6 10^3/uL (0.0-1.0); MONOCYTES % (AUTO) 8.8 %; NEUTROPHILS # (AUTO) 3.8 10^3/uL (1.5-6.6); NEUTROPHILS % (AUTO) 57.5 %; PLT - PLATELET COUNT 227 10^3/uL (130-450); RED BLOOD COUNT 4.77 10^6/uL (4.20-5.40); RED CELL DISTRIBUTION WIDTH 12.7 % (12.0-15.0); WHITE BLOOD COUNT 6.7 x10^3/uL (4.8-10.8)
[2020-07-11 13:33] LABS: CALCIUM 10.1 mg/dL (8.5-10.3); CREATININE 0.7 mg/dL (0.4-1.0); MAGNESIUM 2.4 mg/dL (1.7-2.8)
--- NOTE | 2020-07-11 13:36 | ED Physician Documentation ---
History of Present Illness - Stated complaint Stated Complaint: SOA/IRREGULAR HEART RATE - Chief complaint Chief Complaint: Cardiac - Additonal information Additional information: 70-year-old female who has a history of PVCs presents to the emergency department for the feeling of increased frequency of skipped beats that she has been feeling for about 24 hours. She also reports that for a few weeks she has been feeling like she cannot always catch her breath. She denies however having orthopnea, dyspnea on exertion or any chest pain. No leg swelling. She has no fevers no abdominal pain vomiting or dysuria. Her primary care doctor does have her on metoprolol for control of her PVCs. She also takes lisinopril for hypertension and crest [facility] for her cholesterol. She does report to me that she has had a previous echocardiogram and stress test that did not show any worrisome findings. This was completed at the [facility] Review of Systems Constitutional: denies: Fever, Chills, Myalgias Eyes: reports: Reviewed and negative Ears: reports: Reviewed and negative Nose: reports: Reviewed and negative Throat: reports: Reviewed and negative Cardiac: reports: Palpitations. denies: Chest pain / pressure, Pedal edema, Calf pain Respiratory: denies: Dyspnea, Cough, Hemoptysis, Wheezing GI: reports: Reviewed and negative : reports: Reviewed and negative Skin: reports: Reviewed and negative Musculoskeletal: reports: Reviewed and negative PD PAST MEDICAL HISTORY - Past Medical History Cardiovascular: Hypertension, High cholesterol GI: GERD, Hemorrhoids, Diverticulitis SOIL CONSERVATION AIDE: Breast cancer - Past Surgical History Past Surgical History: Yes General: Appendectomy /SOIL CONSERVATION AIDE: Breast reduction - Present Medications Home Medications: Ambulatory Orders Medication Instructions Recorded Confirmed Magnesium Oxide [Magnesium] 500 mg PO DAILY 10/02/18 10/02/18 Rosuvastatin Calcium [Crestor] 5 mg PO DAILY 10/02/18 10/02/18 Lisinopril [Prinivil] 10 mg PO DAILY 07/11/20 07/11/20 Metoprolol Tartrate [Lopressor] 25 mg DAILY 07/11/20 07/11/20 - Allergies Allergies/Adverse Reactions: Allergies Allergy/AdvReac Type Severity Reaction Status Date / Time beclomethasone [From Qvar] Allergy Anaphylaxis Verified 07/11/20 12:35 levofloxacin [From Levaquin] Allergy Unknown Verified 07/11/20 12:35 - Social History Does the pt smoke?: No Smoking Status: Never smoker Does the pt drink ETOH?: Yes Does the pt have substance abuse?: No - Immunizations Immunizations are current?: Yes PD ED PE EXPANDED - General General: Alert, No acute distress, Well developed/nourished Results - Vitals Vitals: Vital Signs - 24 hr 07/11/20 12:30 Temperature 37.1 C Heart Rate 63 Respiratory 20 Rate Blood Pressure 156/74 H O2 Saturation 97 Oxygen O2 Source Room air - Labs Labs: Laboratory Tests 07/11/20 07/11/20 07/11/20 13:18 13:18 13:18 WBC 6.7 RBC 4.77 Hgb 14.1 Hct 42.7 MCV 89.5 MCH 29.6 MCHC 33.0 RDW 12.7 Plt Count 227 MPV 10.4 Neut # (Auto) 3.8 Lymph # (Auto) 1.8 Kane # (Auto) 0.6 Eos # (Auto) 0.3 Baso # (Auto) 0.1 Absolute Nucleated RBC 0.00 Nucleated RBC % 0.0 Sodium 139 Potassium 4.1 Chloride 103 Carbon Dioxide 24 Anion Gap 12.0 BUN 15 Creatinine 0.7 Estimated GFR (MDRD) 83 L Glucose 103 H Calcium 10.1 Magnesium 2.4 Troponin I High Sens B-Natriuretic Peptide TSH 0.96 07/11/20 07/11/20 13:18 13:18 WBC RBC Hgb Hct MCV MCH MCHC RDW Plt Count MPV Neut # (Auto) Lymph # (Auto) Kane # (Auto) Eos # (Auto) Baso # (Auto) Absolute Nucleated RBC Nucleated RBC % Sodium Potassium Chloride Carbon Dioxide Anion Gap BUN Creatinine Estimated GFR (MDRD) Glucose Calcium Magnesium Troponin I High Sens 5.4 B-Natriuretic Peptide 47 TSH - Rads (name of study) cxr Radiology: EMP read indepedently (Acute cardiopulmonary findings) PD MEDICAL DECISION MAKING - ED course Complexity details: reviewed results, re-evaluated patient, considered differential, d/w patient, d/w family ED course: 70-year-old female presents to the emergency department with chief complaint of feeling increased frequency of palpitations for the last 24 hours. She also reports that she has felt somewhat short of air over the last few weeks however she denies orthopnea or dyspnea on exertion or chest pain. Today in the emergency department her chest x-ray is unremarkable. No focal abnormalities. EKG is sinus rhythm without ischemic changes. There are infrequent PVCs. Her labs are reviewed. There is no anemia. Her electrolytes and magnesium are within normal limits. High-sensitivity troponin and BNP are also unremarkable. These findings were discussed with the patient. I have encouraged her to have close follow-up with her primary care provider. Departure - Departure Disposition: Home, Self Care Clinical Impression: PVCs (premature ventricular contractions), Shortness of breath Condition: Stable Record reviewed to determine appropriate education?: Yes Follow-Up: Lilia Montilla ARNP [Primary Care Provider] - Comments: Patricia your EKG and labs today are all essentially normal. Your chest x-ray is also unremarkable. PVCs are very common and typically they do not require any medical treatment. I recommend that you continue taking the metoprolol and lisinopril as you have been. Please return to the emergency department if you develop leg swelling, have chest pain with any exertion or feel that you cannot breathe normally. Discussed this ED visit with your primary care provider
--- NOTE | 2020-07-11 14:55 | XRAY Report ---
PROCEDURE: Chest 1 View X-Ray INDICATIONS: chest pain TECHNIQUE: One view of the chest was acquired. COMPARISON: 10/02/2018 FINDINGS: Surgical changes and devices: Surgical clips in the right breast are stable.. Lungs and pleura: No pleural effusions or pneumothorax. Lungs are clear. Mediastinum: Mediastinal contours appear normal. Heart size is normal. Bones and chest wall: No suspicious bony lesions. Overlying soft tissues appear unremarkable. IMPRESSION: No acute cardiopulmonary disease process. Reviewed by: Torri Ward MD, PhD on 07/11/2020 2:54 PM PST Approved by: Torri Ward MD, PhD on 07/11/2020 2:54 PM PST Station ID: [id number]
[2020-07-11 15:42] VITALS: BP 140/76
== END 2020-07-11 15:12 | disposition home or self-care (01) ==
LOC: ED 12:05
DX: I49.3 Ventricular premature depolarization (principal); R06.02 Shortness of breath; I10 Essential (primary) hypertension; E78.00 Pure hypercholesterolemia, unspecified
CPT/HCPCS: 36415; 71045; 80048; 83735; 83880; 84443; 84484; 85025; 93005; 99281; 99284

== ENCOUNTER 2020-09-05 12:17 | Outpatient (CLI) | payer MEDICARE | END 2020-09-05 12:18 | disposition home or self-care (01) | LOC: COV 12:17 | PROVIDERS: ATTEND Family Medicine | DX: R53.83 Other fatigue (principal); Z20.828 Contact with and (suspected) exposure to other viral communicable diseases; M79.10 Myalgia, unspecified site; R19.7 Diarrhea, unspecified; R11.2 Nausea with vomiting, unspecified; R43.9 Unspecified disturbances of smell and taste; R09.81 Nasal congestion ==

== ENCOUNTER 2021-04-08 08:36 | Outpatient (CLI) | payer MEDICARE ==
[2021-04-08 16:17] LABS: BASOPHILS # (AUTO) 0.1 10^3/uL (0.0-0.1); BASOPHILS % (AUTO) 1.4 %; EOSINOPHILS # (AUTO) 0.3 10^3/uL (0.0-0.7); EOSINOPHILS % (AUTO) 5.5 %; HCT - HEMATOCRIT 45.2 % (37.0-47.0); HGB - HEMOGLOBIN 14.8 g/dL (12.0-16.0); LYMPHOCYTES # (AUTO) 2.1 10^3/uL (1.5-3.5); LYMPHOCYTES % (AUTO) 37.9 %; MEAN CORPUSCULAR HGB CONC 32.7 g/dL (32.0-36.0); MEAN CORPUSCULAR VOLUME 91.5 fL (81.0-99.0); MEAN PLATELET VOLUME 11.7 fL (7.9-10.8); MONOCYTES # (AUTO) 0.5 10^3/uL (0.0-1.0); MONOCYTES % (AUTO) 8.5 %; NEUTROPHILS # (AUTO) 2.6 10^3/uL (1.5-6.6); NEUTROPHILS % (AUTO) 46.5 %; PLT - PLATELET COUNT 234 10^3/uL (130-450); RED BLOOD COUNT 4.94 10^6/uL (4.20-5.40); RED CELL DISTRIBUTION WIDTH 13.1 % (12.0-15.0); WHITE BLOOD COUNT 5.6 x10^3/uL (4.8-10.8)
[2021-04-08 16:41] LABS: T4 (THYROXINE) 7.3 ug/dL (6.09-12.23)
[2021-04-08 16:45] LABS: THYROID STIMULATING HORMONE 2.03 uIU/mL (0.34-5.60)
[2021-04-08 16:50] LABS: ALBUMIN 4.8 g/dL (3.2-5.5); ALBUMIN/GLOBULIN RATIO 1.6 (1.0-2.2); ALKALINE PHOSPHATASE 78 IU/L (42-121); ALT ALANINE AMINOTRANSFERASE 60 IU/L (10-60); AST ASPARTATE AMINOTRANSFERASE 50 IU/L (10-42); BILIRUBIN,TOTAL 0.9 mg/dL (0.2-1.0); BUN - BLOOD UREA NITROGEN 11 mg/dL (6-20); CALCIUM 10.1 mg/dL (8.5-10.3); CARBON DIOXIDE - CO2 27 mmol/L (21-32); CHLORIDE 105 mmol/L (101-111); CHOL/HDL RATIO 3.3 (<4.4); CHOLESTEROL 164 mg/dL; CREATININE 0.6 mg/dL (0.4-1.0); GFR - MDRD 99 (>89); GLUCOSE 96 mg/dL (70-100); HDL CHOLESTEROL 49 mg/dL; LDL CHOLESTEROL,CALCULATED 71 mg/dL; LDL/HDL RATIO 1.4 (<4.4); SODIUM 141 mmol/L (135-145); TOTAL PROTEIN 7.8 g/dL (6.7-8.2); TRIGLYCERIDES 219 mg/dL; VLDL CHOLESTEROL 44 mg/dL
== END 2021-04-08 08:37 | disposition home or self-care (01) ==
LOC: LAB.S 08:36
PROVIDERS: ATTEND Registered Nurse
DX: Z00.00 Encounter for general adult medical examination without abnormal findings (principal); I51.9 Heart disease, unspecified
CPT/HCPCS: 36415; 80053; 80061; 82306; 83721; 84436; 84443; 84480; 85025

== ENCOUNTER 2021-04-09 14:49 | Outpatient (CLI) | payer MEDICARE ==
--- NOTE | 2021-04-22 09:06 | Mammography Report ---
BILATERAL DIGITAL SCREENING MAMMOGRAM 3D/2D WITH EXAGGERATED CC: 04/09/2021 CLINICAL: Routine screening. Personal history of right breast cancer. Comparison is made to exams dated: 10/21/2019 mammogram, 09/21/2018 mammogram, 07/22/2017 mammogram, a nd 01/29/2016 mammogram - [facility]. The tissue of both breasts is predominantly f atty. Reporting delay due to technical issues. There are benign calcifications in the right breast. There also are benign post operative findings i n the right breast. No significant masses, calcifications, or other findings are seen in either breast. There has been no significant interval change. IMPRESSION: BENIGN There is no mammographic evidence of malignancy. A 1 year screening mammogram is recommended. This exam was interpreted at Station ID: [id number]. NOTE: For mammograms, a report in lay terms will be sent to the patient. Approximately 15% of breast malignancies will not be visualized mammographically. In the management of a palpable breast mass, a negative mammogram must not discourage biopsy of a clinically suspicious lesion. Electronically Signed By: Jc Spain M.D. [facility] [email or web address]:04/16/2021 16:55:30 ACR BI-RADS Category 2: Benign Finding(s) 3342F PARENCHYMAL PATTERN: (F) - The breast(s) demonstrate(s) diffuse fatty replacement. BI-RADS CATEGORY: (2) - 2 RECOMMENDATION: (ANNUAL) - Recommend routine annual screening mammography. [id number] 1 year screening LATERALITY: (B)
== END 2021-04-09 14:50 | disposition home or self-care (01) ==
LOC: DI.S 14:49
PROVIDERS: ATTEND Registered Nurse
DX: Z12.31 Encounter for screening mammogram for malignant neoplasm of breast (principal); Z85.3 Personal history of malignant neoplasm of breast

== ENCOUNTER 2021-08-21 08:45 | Outpatient (CLI) | payer MEDICARE | END 2021-08-21 08:46 | disposition home or self-care (01) | LOC: LAB.S 08:45 | PROVIDERS: ATTEND Registered Nurse | DX: E55.9 Vitamin D deficiency, unspecified (principal) | CPT/HCPCS: 36415; 82306 ==

== ENCOUNTER 2022-03-26 10:20 | Outpatient (CLI) | payer MEDICARE ==
[2022-03-26 14:34] LABS: BASOPHILS # (AUTO) 0.1 10^3/uL (0.0-0.1); BASOPHILS % (AUTO) 1.5 %; EOSINOPHILS # (AUTO) 0.3 10^3/uL (0.0-0.7); EOSINOPHILS % (AUTO) 5.1 %; HCT - HEMATOCRIT 44.5 % (37.0-47.0); HGB - HEMOGLOBIN 14.7 g/dL (12.0-16.0); LYMPHOCYTES # (AUTO) 1.9 10^3/uL (1.5-3.5); LYMPHOCYTES % (AUTO) 34.3 %; MEAN CORPUSCULAR VOLUME 90.8 fL (81.0-99.0); MEAN PLATELET VOLUME 11.6 fL (7.9-10.8); MONOCYTES # (AUTO) 0.5 10^3/uL (0.0-1.0); MONOCYTES % (AUTO) 8.9 %; NEUTROPHILS # (AUTO) 2.8 10^3/uL (1.5-6.6); PLT - PLATELET COUNT 243 10^3/uL (130-450); RED CELL DISTRIBUTION WIDTH 13.1 % (12.0-15.0); WHITE BLOOD COUNT 5.5 x10^3/uL (4.8-10.8)
[2022-03-26 15:12] LABS: ALBUMIN 4.6 g/dL (3.2-5.5); ALBUMIN/GLOBULIN RATIO 1.4 (1.0-2.2); ALKALINE PHOSPHATASE 76 IU/L (42-121); ALT ALANINE AMINOTRANSFERASE 38 IU/L (10-60); AST ASPARTATE AMINOTRANSFERASE 39 IU/L (10-42); BILIRUBIN,TOTAL 0.9 mg/dL (0.2-1.0); BUN - BLOOD UREA NITROGEN 11 mg/dL (6-20); CALCIUM 10.2 mg/dL (8.5-10.3); CARBON DIOXIDE - CO2 27 mmol/L (21-32); CHLORIDE 100 mmol/L (101-111); CHOL/HDL RATIO 3.3 (<4.4); CHOLESTEROL 184 mg/dL; CREATININE 0.6 mg/dL (0.4-1.0); GFR - MDRD 99 (>89); GLUCOSE 96 mg/dL (70-100); HDL CHOLESTEROL 56 mg/dL; LDL CHOLESTEROL,CALCULATED 97 mg/dL; LDL/HDL RATIO 1.7 (<4.4); SODIUM 136 mmol/L (135-145); TOTAL PROTEIN 7.9 g/dL (6.7-8.2); TRIGLYCERIDES 157 mg/dL; VLDL CHOLESTEROL 31 mg/dL
[2022-03-26 15:14] LABS: THYROID STIMULATING HORMONE 1.14 uIU/mL (0.34-5.60)
[2022-03-27 04:08] LABS: HCV AB <0.1 s/co ratio (0.0-0.9)
== END 2022-03-26 10:21 | disposition home or self-care (01) ==
LOC: LAB.S 10:20
PROVIDERS: ATTEND Registered Nurse
DX: Z01.84 Encounter for antibody response examination (principal); E55.9 Vitamin D deficiency, unspecified
CPT/HCPCS: 36415; 80053; 80061; 82306; 83721; 84443; 85025; 86803

== ENCOUNTER 2022-08-19 10:58 | Outpatient (CLI) | payer MEDICARE ==
--- NOTE | 2022-08-20 11:54 | Mammography Report ---
BILATERAL DIGITAL SCREENING MAMMOGRAM 3D/2D WITH EXAGGERATED CC: 08/19/2022 CLINICAL: Routine screening. Comparison is made to exams dated: 04/09/2021 mammogram, 10/21/2019 mammogram, 09/21/2018 mammogram, mammogram, and 01/29/2016 mammogram - [facility]. Both breasts are almost entirely fatty (category a/<25% glandular tissue). There are benign calcifications in the right breast. There also are benign post operative findings i n the right breast. No significant masses, calcifications, or other findings are seen in either breast. There has been no significant interval change. IMPRESSION: BENIGN There is no mammographic evidence of malignancy. A 1 year screening mammogram is recommended. This exam was interpreted at Station ID: [id number]. NOTE: For mammograms, a report in lay terms will be sent to the patient. Approximately 15% of breast malignancies will not be visualized mammographically. In the management of a palpable breast mass, a negative mammogram must not discourage biopsy of a clinically suspicious lesion. Electronically Signed By: Cleveland Zimmerman M.D. [email or web address]:08/19/2022 19:27:11 ACR BI-RADS Category 2: Benign Finding(s) 3342F PARENCHYMAL PATTERN: (F) - The breast(s) demonstrate(s) diffuse fatty replacement. BI-RADS CATEGORY: (2) - 2 RECOMMENDATION: (ANNUAL) - Recommend routine annual screening mammography. [id number] 1 year screening LATERALITY: (B)
== END 2022-08-19 10:59 | disposition home or self-care (01) ==
LOC: DI 10:58
PROVIDERS: ATTEND Registered Nurse
DX: Z12.31 Encounter for screening mammogram for malignant neoplasm of breast (principal)

== ENCOUNTER 2022-11-04 09:12 | Outpatient (CLI) | payer MEDICARE ==
[2022-11-04 15:45] LABS: FECAL OCCULT BLOOD (FIT) NEGATIVE (NEGATIVE)
[2022-11-07 15:09] LABS: OVA + PARASITE EXAM Final report (.)
== END 2022-11-04 09:13 | disposition home or self-care (01) ==
LOC: LAB.S 09:12
PROVIDERS: ATTEND Registered Nurse
DX: R19.7 Diarrhea, unspecified (principal)
CPT/HCPCS: 82274; 87045; 87046; 87177; 87427

== ENCOUNTER 2023-05-05 08:00 | Outpatient (CLI) | payer MEDICARE | END 2023-05-05 23:59 | disposition home or self-care (01) | LOC: LAB.S 08:00 | PROVIDERS: ATTEND Physician Assistant | DX: R30.0 Dysuria (principal) | CPT/HCPCS: 87086 ==

== ENCOUNTER 2023-05-19 08:28 | Outpatient (CLI) | payer MEDICARE ==
[2023-05-19 14:41] LABS: BASOPHILS # (AUTO) 0.1 10^3/uL (0.0-0.1); BASOPHILS % (AUTO) 1.4 %; EOSINOPHILS # (AUTO) 0.2 10^3/uL (0.0-0.7); HCT - HEMATOCRIT 42.9 % (37.0-47.0); HGB - HEMOGLOBIN 14.1 g/dL (12.0-16.0); LYMPHOCYTES # (AUTO) 1.9 10^3/uL (1.5-3.5); LYMPHOCYTES % (AUTO) 33.6 %; MEAN CORPUSCULAR HEMOGLOBIN 29.4 pg (27.0-31.0); MEAN CORPUSCULAR HGB CONC 32.9 g/dL (32.0-36.0); MEAN CORPUSCULAR VOLUME 89.4 fL (81.0-99.0); MEAN PLATELET VOLUME 10.9 fL (7.9-10.8); MONOCYTES # (AUTO) 0.6 10^3/uL (0.0-1.0); MONOCYTES % (AUTO) 10.9 %; NEUTROPHILS # (AUTO) 2.8 10^3/uL (1.5-6.6); NEUTROPHILS % (AUTO) 49.7 %; PLT - PLATELET COUNT 293 10^3/uL (130-450); RED CELL DISTRIBUTION WIDTH 13.2 % (12.0-15.0); WHITE BLOOD COUNT 5.7 x10^3/uL (4.8-10.8)
[2023-05-19 15:23] LABS: ALBUMIN 4.5 g/dL (3.2-5.5); ALBUMIN/GLOBULIN RATIO 1.6 (1.0-2.2); ALKALINE PHOSPHATASE 85 IU/L (42-121); ALT ALANINE AMINOTRANSFERASE 39 IU/L (10-60); AST ASPARTATE AMINOTRANSFERASE 27 IU/L (10-42); BILIRUBIN,TOTAL 0.9 mg/dL (0.2-1.0); BUN - BLOOD UREA NITROGEN 10 mg/dL (6-20); CALCIUM 10.3 mg/dL (8.5-10.3); CARBON DIOXIDE - CO2 29 mmol/L (21-32); CHLORIDE 103 mmol/L (101-111); CHOL/HDL RATIO 4.6 (<4.4); CHOLESTEROL 220 mg/dL; CREATININE 0.7 mg/dL (0.6-1.3); GFR - MDRD 82 (>89); GLUCOSE 90 mg/dL (74-104); HDL CHOLESTEROL 48 mg/dL; LDL CHOLESTEROL,CALCULATED 126 mg/dL; LDL/HDL RATIO 2.6 (<4.4); POTASSIUM 3.9 mmol/L (3.5-4.5); SODIUM 138 mmol/L (135-145); TOTAL PROTEIN 7.3 g/dL (6.4-8.9); TRIGLYCERIDES 231 mg/dL (48-352); VLDL CHOLESTEROL 46 mg/dL
[2023-05-19 15:29] LABS: THYROID STIMULATING HORMONE 1.28 uIU/mL (0.34-5.60)
== END 2023-05-19 08:29 | disposition home or self-care (01) ==
LOC: LAB.S 08:28
PROVIDERS: ATTEND Registered Nurse
DX: I10 Essential (primary) hypertension (principal); E78.5 Hyperlipidemia, unspecified; E55.9 Vitamin D deficiency, unspecified; Z13.29 Encounter for screening for other suspected endocrine disorder
CPT/HCPCS: 36415; 80053; 80061; 82306; 83721; 84443; 85025